=== PATIENT | male | born 1950 | race Caucasian/White ===

== ENCOUNTER 2021-01-11 16:24 | Inpatient (IN) | payer MEDICARE, MEDICAID ==
[2021-01-11 16:40] VITALS: BMI 27.2
[2021-01-11] MEDS ORDERED: Ondansetron ODT 4 MG TAB PO PRN (17:30)
[2021-01-11] MEDS ORDERED: Lisinopril 10 MG TAB PO SCH (18:00)
[2021-01-11] MEDS ORDERED: Melatonin 3 MG TAB PO SCH (18:00)
[2021-01-11 18:01] LABS: Lactic Acid 1.6 mmol/L (0.5-2.2)
[2021-01-11 18:05] LABS: Cardiac Risk 2.6 (Less than 4.5)
[2021-01-11] MEDS ORDERED: Multivitamins, Adult 10 ML, Folic Acid 1 MG, Thiamine HCl 100 MG in Dextrose 5 %-0.45 %... IV SCH (18:30)
[2021-01-11] MEDS: Morphine 4 MG/ML VIAL SLOW IVP PRN (19:58)
[2021-01-11] MEDS: hydrALAZINE 20 MG/ML VIAL SLOW IVP PRN (19:59)
[2021-01-11] MEDS: Senokot S 8.6-50 MG TAB PO PRN (20:00)
[2021-01-11] MEDS ORDERED: FLU VACC QS2021-22(65YR UP)/PF 240 MCG/0.7 ML SYRINGE IM ONE (20:00)
[2021-01-11] MEDS: Famotidine 20 MG TAB PO SCH (20:00)
[2021-01-11] MEDS ORDERED: Famotidine/PF 20 mg/2ml Vial SLOW IVP PRN (21:00)
[2021-01-12] MEDS: Morphine 4 MG/ML VIAL SLOW IVP PRN ×5 (01:35→19:27)
[2021-01-12 04:24] LABS: #Monocytes 0.9 10x3/uL (0.0-1.1); #Neutrophils 8.4 10x3/uL (1.5-8.4); %Basophils 0.3 % (0.0-2.0); %Eosinophils 0.3 % (0.0-6.0); %Lymphocytes 12.1 % (18.0-47.0); %Monocytes 8.5 % (0.0-10.0); %Neutrophils 78.3 % (40.0-75.0); Hemoglobin 13.7 g/dL (13.5-17.5); Mean Corpuscular HGB CONC 35.8 g/dL (32.0-36.0); Mean Corpuscular Volume 103.5 fl (81.2-95.1); Mean Platelet Volume 10.5 fl (7.4-10.4); Platelet Count 220 10x3/uL (150-450); RBC Distribution Width 12.2 % (11.5-14.5); White Blood Cell (WBC) Count 10.7 10x3/uL (3.5-10.5)
[2021-01-12 04:44] LABS: ALT (SGPT) 43 U/L (8-55); AST (SGOT) 62 U/L (5-34); Albumin 3.7 g/dL (3.4-4.8); Alkaline Phosphatase 52 U/L (40-110); Anion Gap 15 mmol/L (10-20); BUN (Urea Nitrogen) 13 mg/dL (8.4-25.7); Bilirubin, Direct 0.9 mg/dL (0.1-0.3); Bilirubin, Total 2.1 mg/dL (0.2-1.2); CK (CPK) 1461 U/L (30-200); Calc. Creatinine Clearance 82 mL/min (70-130); Calcium 8.3 mg/dL (7.8-10.44); Carbon Dioxide 28 mmol/L (23-31); Chloride 97 mmol/L (98-107); Glucose 103 mg/dL (83-110); Lipase 602 U/L (8-78); Potassium 4.1 mmol/L (3.5-5.1); Protein, Total 6.2 g/dL (5.8-8.1); Sodium 136 mmol/L (136-145)
[2021-01-12] MEDS: Ondansetron PF 4 MG/2 ML Vial IVP PRN (08:50)
[2021-01-12] MEDS ORDERED: Lisinopril 10 MG TAB PO SCH (09:00)
[2021-01-12] MEDS: Thiamine 100 MG TAB PO SCH (09:43)
[2021-01-12] MEDS: Multivit, Therapeutic 1 TAB PO SCH (09:43)
[2021-01-12] MEDS: Famotidine 20 MG TAB PO SCH ×2 (09:43→20:46)
[2021-01-12] MEDS: Folic Acid 1 MG TAB PO SCH (09:44)
[2021-01-12] MEDS: Senokot S 8.6-50 MG TAB PO PRN (09:44)
[2021-01-12] MEDS: Lactated Ringer's 1,000 ML IV SCH ×3 (11:14→20:48)
[2021-01-12] MEDS: Acetaminophen 325 MG TAB PO PRN (19:26)
[2021-01-12] MEDS: Melatonin 3 MG TAB PO PRN (21:37)
[2021-01-13] MEDS: Lactated Ringer's 1,000 ML IV SCH ×6 (01:35→22:00)
[2021-01-13] MEDS: Morphine 4 MG/ML VIAL SLOW IVP PRN ×5 (05:35→22:01)
[2021-01-13 08:20] LABS: #Basophils 0.1 10x3/uL (0.0-0.2); #Eosinphils 0.1 10x3/uL (0.0-0.5); #Monocytes 0.8 10x3/uL (0.0-1.1); #Neutrophils 6.7 10x3/uL (1.5-8.4); %Basophils 0.5 % (0.0-2.0); %Eosinophils 0.8 % (0.0-6.0); %Lymphocytes 16.6 % (18.0-47.0); %Monocytes 8.3 % (0.0-10.0); %Neutrophils 73.5 % (40.0-75.0); Hemoglobin 12.6 g/dL (13.5-17.5); Mean Corpuscular HGB CONC 33.2 g/dL (32.0-36.0); Mean Corpuscular Hemoglobin 34.9 pg (27.0-33.0); Mean Platelet Volume 10.2 fl (7.4-10.4); Platelet Count 169 10x3/uL (150-450); Red Blood Cell (RBC) Count 3.61 10x6/uL (4.32-5.72); White Blood Cell (WBC) Count 9.2 10x3/uL (3.5-10.5)
[2021-01-13 08:39] LABS: ALT (SGPT) 35 U/L (8-55); AST (SGOT) 47 U/L (5-34); Albumin 3.4 g/dL (3.4-4.8); Alkaline Phosphatase 47 U/L (40-110); Anion Gap 14 mmol/L (10-20); BUN (Urea Nitrogen) 8 mg/dL (8.4-25.7); Bilirubin, Total 2.1 mg/dL (0.2-1.2); Calc. Creatinine Clearance 94 mL/min (70-130); Calcium 8.5 mg/dL (7.8-10.44); Carbon Dioxide 26 mmol/L (23-31); Chloride 99 mmol/L (98-107); Globulin 2.5 g/dL (2.4-3.5); Glucose 98 mg/dL (83-110); Potassium 4.3 mmol/L (3.5-5.1); Protein, Total 5.9 g/dL (5.8-8.1); Sodium 135 mmol/L (136-145)
[2021-01-13] MEDS: Multivit, Therapeutic 1 TAB PO SCH (08:45)
[2021-01-13] MEDS: Thiamine 100 MG TAB PO SCH (08:45)
[2021-01-13] MEDS: Famotidine 20 MG TAB PO SCH ×2 (08:45→20:19)
[2021-01-13] MEDS: Folic Acid 1 MG TAB PO SCH (08:45)
[2021-01-13] MEDS: hydrALAZINE 20 MG/ML VIAL SLOW IVP PRN ×3 (08:45→20:20)
[2021-01-13] MEDS ORDERED: Morphine 4 MG/ML VIAL SLOW IVP PRN (09:09)
[2021-01-13] MEDS ORDERED: Morphine 4 MG/ML VIAL SLOW IVP SCH (17:30)
[2021-01-13] MEDS: Acetaminophen 325 MG TAB PO PRN (17:45)
[2021-01-13] MEDS: Melatonin 3 MG TAB PO PRN (20:19)
[2021-01-14] MEDS: Morphine 4 MG/ML VIAL SLOW IVP PRN ×5 (03:13→20:18)
[2021-01-14] MEDS: Lactated Ringer's 1,000 ML IV SCH ×4 (03:13→20:08)
[2021-01-14 04:24] LABS: #Basophils 0.1 10x3/uL (0.0-0.2); #Eosinphils 0.1 10x3/uL (0.0-0.5); #Monocytes 0.7 10x3/uL (0.0-1.1); #Neutrophils 5.6 10x3/uL (1.5-8.4); %Basophils 0.6 % (0.0-2.0); %Eosinophils 1.8 % (0.0-6.0); %Lymphocytes 17.5 % (18.0-47.0); %Monocytes 9.2 % (0.0-10.0); %Neutrophils 70.6 % (40.0-75.0); Hemoglobin 12.1 g/dL (13.5-17.5); Mean Corpuscular HGB CONC 33.9 g/dL (32.0-36.0); Mean Corpuscular Hemoglobin 35.6 pg (27.0-33.0); Mean Platelet Volume 10.8 fl (7.4-10.4); Platelet Count 178 10x3/uL (150-450); RBC Distribution Width 12.1 % (11.5-14.5); White Blood Cell (WBC) Count 7.9 10x3/uL (3.5-10.5)
[2021-01-14 04:39] LABS: ALT (SGPT) 33 U/L (8-55); AST (SGOT) 38 U/L (5-34); Albumin 3.2 g/dL (3.4-4.8); Alkaline Phosphatase 43 U/L (40-110); Anion Gap 14 mmol/L (10-20); BUN (Urea Nitrogen) 6 mg/dL (8.4-25.7); Bilirubin, Total 1.7 mg/dL (0.2-1.2); Calc. Creatinine Clearance 107 mL/min (70-130); Calcium 8.5 mg/dL (7.8-10.44); Carbon Dioxide 26 mmol/L (23-31); Chloride 99 mmol/L (98-107); Globulin 2.3 g/dL (2.4-3.5); Glucose 98 mg/dL (83-110); Potassium 3.8 mmol/L (3.5-5.1); Protein, Total 5.5 g/dL (5.8-8.1); Sodium 135 mmol/L (136-145)
[2021-01-14] MEDS: Famotidine 20 MG TAB PO SCH ×2 (08:08→20:20)
[2021-01-14] MEDS: Multivit, Therapeutic 1 TAB PO SCH (08:08)
[2021-01-14] MEDS: Folic Acid 1 MG TAB PO SCH (08:08)
[2021-01-14] MEDS: Thiamine 100 MG TAB PO SCH (08:08)
[2021-01-14 11:35] LABS: Magnesium 1.4 mg/dL (1.6-2.6); Phosphorus 2.5 mg/dL (2.3-4.7)
[2021-01-14] MEDS ORDERED: Magnesium 2 GM/50 ML 2 GM in Premix Bag 1 BAG IVPB SCH (20:00)
[2021-01-14] MEDS: hydrALAZINE 20 MG/ML VIAL SLOW IVP PRN (20:12)
[2021-01-14] MEDS: Melatonin 3 MG TAB PO PRN (20:20)
[2021-01-14] MEDS ORDERED: Magnesium Sulfate 2 GM in Sodium Chloride 0.9% 100 ML IVPB SCH (21:00)
[2021-01-15] MEDS: Morphine 4 MG/ML VIAL SLOW IVP PRN ×4 (00:35→18:48)
[2021-01-15] MEDS: Lactated Ringer's 1,000 ML IV SCH ×5 (00:44→21:28)
[2021-01-15] MEDS: hydrALAZINE 20 MG/ML VIAL SLOW IVP PRN ×4 (04:46→19:53)
[2021-01-15 05:19] LABS: #Basophils 0.1 10x3/uL (0.0-0.2); #Eosinphils 0.2 10x3/uL (0.0-0.5); #Neutrophils 5.1 10x3/uL (1.5-8.4); %Basophils 0.9 % (0.0-2.0); %Eosinophils 2.6 % (0.0-6.0); %Lymphocytes 16.6 % (18.0-47.0); %Monocytes 12.7 % (0.0-10.0); %Neutrophils 66.9 % (40.0-75.0); Hemoglobin 12.3 g/dL (13.5-17.5); Mean Corpuscular HGB CONC 33.8 g/dL (32.0-36.0); Mean Corpuscular Hemoglobin 35.7 pg (27.0-33.0); Mean Corpuscular Volume 105.5 fl (81.2-95.1); Mean Platelet Volume 11.2 fl (7.4-10.4); Platelet Count 187 10x3/uL (150-450); RBC Distribution Width 12.1 % (11.5-14.5); Red Blood Cell (RBC) Count 3.45 10x6/uL (4.32-5.72); White Blood Cell (WBC) Count 7.7 10x3/uL (3.5-10.5)
[2021-01-15 05:25] LABS: ALT (SGPT) 34 U/L (8-55); AST (SGOT) 41 U/L (5-34); Albumin 3.3 g/dL (3.4-4.8); Alkaline Phosphatase 45 U/L (40-110); Anion Gap 12 mmol/L (10-20); BUN (Urea Nitrogen) 6 mg/dL (8.4-25.7); Bilirubin, Total 1.5 mg/dL (0.2-1.2); Calc. Creatinine Clearance 105 mL/min (70-130); Carbon Dioxide 27 mmol/L (23-31); Chloride 101 mmol/L (98-107); Globulin 2.7 g/dL (2.4-3.5); Glucose 96 mg/dL (83-110); Potassium 4.3 mmol/L (3.5-5.1); Sodium 136 mmol/L (136-145)
[2021-01-15] MEDS: Ondansetron PF 4 MG/2 ML Vial IVP PRN ×2 (06:37→12:49)
[2021-01-15] MEDS: Acetaminophen 325 MG TAB PO PRN ×3 (06:46→19:55)
[2021-01-15] MEDS ORDERED: Bisacodyl 10 MG SUPP PR SCH (08:00)
[2021-01-15] MEDS: Multivit, Therapeutic 1 TAB PO SCH (08:56)
[2021-01-15] MEDS: Thiamine 100 MG TAB PO SCH (08:56)
[2021-01-15] MEDS: Famotidine 20 MG TAB PO SCH ×2 (08:56→19:54)
[2021-01-15] MEDS: Folic Acid 1 MG TAB PO SCH (08:57)
[2021-01-15] MEDS: Enoxaparin Sodium 40 MG/0.4 ML SYRINGE SC SCH (09:04)
[2021-01-15] MEDS: Senokot S 8.6-50 MG TAB PO PRN (15:08)
[2021-01-15] MEDS ORDERED: Lisinopril 10 MG TAB PO SCH (16:15)
[2021-01-15] MEDS ORDERED: Prochlorperazine 10 MG/2 ML VIAL IVP PRN (16:25)
[2021-01-15] MEDS ORDERED: Prochlorperazine 10 MG/2 ML VIAL IVP SCH (16:30)
[2021-01-15] MEDS: Ondansetron ODT 4 MG TAB PO SCH ×2 (18:22→21:49)
[2021-01-15] MEDS: Melatonin 3 MG TAB PO PRN (19:55)
[2021-01-16] MEDS: HYDROcodone/Acetaminophen 10/325 mg Tablet PO PRN ×2 (00:33→05:28)
[2021-01-16] MEDS: Lactated Ringer's 1,000 ML IV SCH ×4 (00:34→21:10)
[2021-01-16] MEDS ORDERED: Amlodipine 5 MG TAB PO SCH (02:00)
[2021-01-16 04:23] LABS: #Eosinphils 0.2 10x3/uL (0.0-0.5); #Neutrophils 4.6 10x3/uL (1.5-8.4); %Basophils 0.6 % (0.0-2.0); %Eosinophils 2.8 % (0.0-6.0); %Lymphocytes 17.6 % (18.0-47.0); %Monocytes 13.6 % (0.0-10.0); %Neutrophils 65.1 % (40.0-75.0); Hemoglobin 12.1 g/dL (13.5-17.5); Mean Corpuscular HGB CONC 35.2 g/dL (32.0-36.0); Mean Corpuscular Volume 102.4 fl (81.2-95.1); Mean Platelet Volume 10.4 fl (7.4-10.4); Platelet Count 192 10x3/uL (150-450); Red Blood Cell (RBC) Count 3.36 10x6/uL (4.32-5.72); White Blood Cell (WBC) Count 7.1 10x3/uL (3.5-10.5)
[2021-01-16 04:35] LABS: ALT (SGPT) 31 U/L (8-55); AST (SGOT) 34 U/L (5-34); Albumin 3.2 g/dL (3.4-4.8); Alkaline Phosphatase 42 U/L (40-110); Anion Gap 14 mmol/L (10-20); BUN (Urea Nitrogen) 5 mg/dL (8.4-25.7); Bilirubin, Total 1.5 mg/dL (0.2-1.2); Calc. Creatinine Clearance 95 mL/min (70-130); Carbon Dioxide 24 mmol/L (23-31); Chloride 101 mmol/L (98-107); Globulin 2.8 g/dL (2.4-3.5); Glucose 106 mg/dL (83-110); Potassium 3.8 mmol/L (3.5-5.1); Sodium 135 mmol/L (136-145)
[2021-01-16 04:36] LABS: ALT (SGPT) 31 U/L (8-55); AST (SGOT) 34 U/L (5-34); Albumin 3.1 g/dL (3.4-4.8); Alkaline Phosphatase 42 U/L (40-110); Bilirubin, Direct 0.7 mg/dL (0.1-0.3); Bilirubin, Total 1.5 mg/dL (0.2-1.2)
[2021-01-16] MEDS: Ondansetron ODT 4 MG TAB PO SCH ×3 (05:27→15:13)
[2021-01-16] MEDS: hydrALAZINE 20 MG/ML VIAL SLOW IVP PRN (05:28)
[2021-01-16] MEDS ORDERED: Lisinopril 10 MG TAB PO SCH ×2 (09:00)
[2021-01-16] MEDS: Morphine 4 MG/ML VIAL SLOW IVP PRN ×3 (10:14→20:07)
[2021-01-16] MEDS: Famotidine 20 MG TAB PO SCH ×2 (10:17→20:42)
[2021-01-16] MEDS: Enoxaparin Sodium 40 MG/0.4 ML SYRINGE SC SCH (10:29)
[2021-01-16] MEDS ORDERED: Furosemide 40 MG/4 ML VIAL SLOW IVP SCH (18:00)
[2021-01-16] MEDS: Labetalol HCl 100 MG/20 ML VIAL SLOW IVP PRN (18:30)
[2021-01-16] MEDS: Melatonin 3 MG TAB PO PRN (20:42)
[2021-01-16] MEDS: Amlodipine 5 MG TAB PO SCH (20:42)
[2021-01-17] MEDS: Ondansetron ODT 4 MG TAB PO SCH ×5 (00:48→23:08)
[2021-01-17] MEDS: Lactated Ringer's 1,000 ML IV SCH ×3 (01:16→19:15)
[2021-01-17 04:14] LABS: ALT (SGPT) 32 U/L (8-55); AST (SGOT) 34 U/L (5-34); Albumin 3.4 g/dL (3.4-4.8); Alkaline Phosphatase 44 U/L (40-110); Anion Gap 13 mmol/L (10-20); BUN (Urea Nitrogen) 5 mg/dL (8.4-25.7); Bilirubin, Total 1.4 mg/dL (0.2-1.2); Calc. Creatinine Clearance 82 mL/min (70-130); Calcium 9.3 mg/dL (7.8-10.44); Carbon Dioxide 28 mmol/L (23-31); Chloride 99 mmol/L (98-107); Globulin 3.2 g/dL (2.4-3.5); Glucose 88 mg/dL (83-110); Potassium 4.4 mmol/L (3.5-5.1); Protein, Total 6.6 g/dL (5.8-8.1); Sodium 136 mmol/L (136-145)
[2021-01-17] MEDS: hydrALAZINE 20 MG/ML VIAL SLOW IVP PRN (06:04)
[2021-01-17] MEDS: Morphine 4 MG/ML VIAL SLOW IVP PRN (06:19)
[2021-01-17] MEDS ORDERED: Lorazepam 2 MG/ML VIAL SLOW IVP PRN ×2 (08:19→08:20)
[2021-01-17] MEDS ORDERED: Lorazepam 2 MG/ML VIAL SLOW IVP SCH (08:30)
[2021-01-17] MEDS: Enoxaparin Sodium 40 MG/0.4 ML SYRINGE SC SCH (08:54)
[2021-01-17] MEDS: Furosemide 20 MG/2 ML VIAL SLOW IVP SCH (08:56)
[2021-01-17] MEDS: Famotidine 20 MG TAB PO SCH ×2 (08:58→19:49)
[2021-01-17] MEDS: Labetalol HCl 100 MG/20 ML VIAL SLOW IVP PRN ×2 (08:59→18:24)
[2021-01-17] MEDS ORDERED: Furosemide 40 MG/4 ML VIAL SLOW IVP SCH (18:30)
[2021-01-17] MEDS: Amlodipine 5 MG TAB PO SCH (19:49)
[2021-01-17] MEDS: Melatonin 3 MG TAB PO PRN (19:49)
[2021-01-18] MEDS: Lactated Ringer's 1,000 ML IV SCH ×2 (03:25→22:40)
[2021-01-18 05:19] LABS: ALT (SGPT) 30 U/L (8-55); AST (SGOT) 34 U/L (5-34); Albumin 3.6 g/dL (3.4-4.8); Alkaline Phosphatase 54 U/L (40-110); Bilirubin, Direct 0.6 mg/dL (0.1-0.3); Bilirubin, Total 1.3 mg/dL (0.2-1.2); Protein, Total 6.8 g/dL (5.8-8.1)
[2021-01-18] MEDS: Ondansetron ODT 4 MG TAB PO SCH ×4 (05:38→21:41)
[2021-01-18] MEDS: Morphine 4 MG/ML VIAL SLOW IVP PRN ×5 (05:41→22:45)
[2021-01-18] MEDS: Furosemide 40 MG/4 ML VIAL SLOW IVP SCH (09:43)
[2021-01-18] MEDS: Famotidine 20 MG TAB PO SCH ×2 (09:44→21:41)
[2021-01-18] MEDS: Enoxaparin Sodium 40 MG/0.4 ML SYRINGE SC SCH (09:48)
[2021-01-18] MEDS: Furosemide 20 MG/2 ML VIAL SLOW IVP SCH (09:48)
[2021-01-18] MEDS: hydrALAZINE 20 MG/ML VIAL SLOW IVP PRN (12:47)
[2021-01-18] MEDS: Acetaminophen 325 MG TAB PO PRN ×2 (14:27→21:40)
[2021-01-18] MEDS: Amlodipine 5 MG TAB PO SCH (21:40)
[2021-01-18] MEDS: Melatonin 3 MG TAB PO PRN (22:35)
[2021-01-19 04:10] LABS: Bilirubin, Total 1.4 mg/dL (0.2-1.2)
[2021-01-19] MEDS: Ondansetron ODT 4 MG TAB PO SCH ×4 (05:41→20:55)
[2021-01-19] MEDS: Morphine 4 MG/ML VIAL SLOW IVP PRN ×4 (07:46→20:47)
[2021-01-19] MEDS: Enoxaparin Sodium 40 MG/0.4 ML SYRINGE SC SCH (08:58)
[2021-01-19] MEDS: Famotidine 20 MG TAB PO SCH ×2 (09:00→20:49)
[2021-01-19] MEDS: Furosemide 40 MG/4 ML VIAL SLOW IVP SCH (09:01)
[2021-01-19] MEDS ORDERED: Thiamine 100 MG TAB PO SCH (10:00)
[2021-01-19] MEDS: Ondansetron PF 4 MG/2 ML Vial IVP PRN (13:31)
[2021-01-19] MEDS: Lactated Ringer's 1,000 ML IV SCH (20:47)
[2021-01-19] MEDS: Melatonin 3 MG TAB PO PRN (20:49)
[2021-01-19] MEDS: Amlodipine 5 MG TAB PO SCH (20:50)
[2021-01-20] MEDS: Morphine 4 MG/ML VIAL SLOW IVP PRN ×4 (01:21→21:00)
[2021-01-20] MEDS: Ondansetron ODT 4 MG TAB PO SCH ×4 (05:31→21:00)
[2021-01-20] MEDS: Famotidine 20 MG TAB PO SCH ×2 (11:18→21:00)
[2021-01-20] MEDS: Thiamine 100 MG TAB PO SCH (11:19)
[2021-01-20] MEDS: Enoxaparin Sodium 40 MG/0.4 ML SYRINGE SC SCH (11:19)
[2021-01-20] MEDS: Furosemide 40 MG/4 ML VIAL SLOW IVP SCH (11:19)
[2021-01-20] MEDS: hydrALAZINE 20 MG/ML VIAL SLOW IVP PRN (11:40)
[2021-01-20] MEDS: Pancrelipase DR 12,000 1 CAP PO SCH ×2 (14:04→17:39)
[2021-01-20] MEDS: Ondansetron PF 4 MG/2 ML Vial IVP PRN (14:09)
[2021-01-20] MEDS: Melatonin 3 MG TAB PO PRN (21:01)
[2021-01-20] MEDS: Amlodipine 5 MG TAB PO SCH (21:01)
[2021-01-20] MEDS: Senokot S 8.6-50 MG TAB PO PRN (21:28)
[2021-01-21] MEDS: Lactated Ringer's 1,000 ML IV SCH ×2 (02:19→23:53)
[2021-01-21 05:54] LABS: ALT (SGPT) 72 U/L (8-55); AST (SGOT) 78 U/L (5-34); Albumin 3.4 g/dL (3.4-4.8); Alkaline Phosphatase 58 U/L (40-110); Anion Gap 13 mmol/L (10-20); BUN (Urea Nitrogen) 6 mg/dL (8.4-25.7); Bilirubin, Total 1.3 mg/dL (0.2-1.2); Calc. Creatinine Clearance 70 mL/min (70-130); Calcium 8.8 mg/dL (7.8-10.44); Carbon Dioxide 27 mmol/L (23-31); Chloride 98 mmol/L (98-107); Globulin 3.4 g/dL (2.4-3.5); Glucose 102 mg/dL (83-110); Lipase 104 U/L (8-78); Potassium 3.8 mmol/L (3.5-5.1); Protein, Total 6.8 g/dL (5.8-8.1); Sodium 134 mmol/L (136-145)
[2021-01-21] MEDS: Morphine 4 MG/ML VIAL SLOW IVP PRN ×2 (06:18→11:00)
[2021-01-21] MEDS: Ondansetron ODT 4 MG TAB PO SCH ×4 (06:19→21:17)
[2021-01-21] MEDS: Pancrelipase DR 12,000 1 CAP PO SCH ×3 (08:44→16:51)
[2021-01-21] MEDS: Senokot S 8.6-50 MG TAB PO PRN (10:58)
[2021-01-21] MEDS: Furosemide 40 MG/4 ML VIAL SLOW IVP SCH (10:58)
[2021-01-21] MEDS: Thiamine 100 MG TAB PO SCH (10:59)
[2021-01-21] MEDS: Famotidine 20 MG TAB PO SCH ×2 (10:59→21:17)
[2021-01-21] MEDS: Enoxaparin Sodium 40 MG/0.4 ML SYRINGE SC SCH (10:59)
[2021-01-21] MEDS: Melatonin 3 MG TAB PO PRN (21:17)
[2021-01-21] MEDS: Amlodipine 5 MG TAB PO SCH (21:17)
[2021-01-22] MEDS: Ondansetron ODT 4 MG TAB PO SCH ×2 (04:16→10:34)
[2021-01-22] MEDS: Pancrelipase DR 12,000 1 CAP PO SCH (10:34)
[2021-01-22] MEDS: Famotidine 20 MG TAB PO SCH (10:34)
[2021-01-22] MEDS: Thiamine 100 MG TAB PO SCH (10:35)
[2021-01-22] MEDS: Enoxaparin Sodium 40 MG/0.4 ML SYRINGE SC SCH (10:36)
[2021-01-22 12:07] VITALS: BP 148/73; TEMP 98.7
== END 2021-01-22 13:45 | disposition home or self-care (01) | DRG 439 ==
LOC: CSHTELE 16:24
PROVIDERS: ADMIT Internal Medicine; ATTEND Internal Medicine
DX: K85.90 Acute pancreatitis without necrosis or infection, unspecified (principal); J90 Pleural effusion, not elsewhere classified; E87.1 Hypo-osmolality and hyponatremia; K86.89 Other specified diseases of pancreas; I10 Essential (primary) hypertension; F32.A Depression, unspecified; F10.10 Alcohol abuse, uncomplicated; G89.29 Other chronic pain; M54.9 Dorsalgia, unspecified; G47.30 Sleep apnea, unspecified; Z91.14 Patient's other noncompliance with medication regimen; Z79.899 Other long term (current) drug therapy
CPT/HCPCS: 36415; 36416; 74018; 74170; 74183; 76705; 80048; 80053; 80061; 80076; 82247; 82550; 82607; 82746; 83605; 83690; 83735; 84100; 84425; 84478; 85025; J0360; J0780; J1650; J1940; J2060; J2270; J2405; J3411; J3475; J7042; J7120; Q0162